=== PATIENT | male | born 1965 | race Caucasian/White ===

== ENCOUNTER 2018-03-01 17:34 | Emergency (ER) | payer OTHER ==
[~2018-03-01] VITALS: Ht 170.2 cm; Wt 70.8 kg
[~2018-03-01 17:34] MED LIST: AMLODIPINE BESYL5 MG PO; CLEOCIN300 MG PO; DOCUSATE SODIU100 MG PO; NICOTINE PATCH1 EAC2 TD; PERCOCET 5/31 TABLET PO
[2018-03-01 17:45] VITALS: BP 141/110
[2018-03-01 18:37] LABS: HEMATOCRIT 35.2 % (38.0-50.0); HEMOGLOBIN 12.2 G/DL (12.5-16.6); MCH 33.1 PG (29.0-34.0); MCHC 34.7 G/DL (30.0-36.0); MCV 95.4 FL (86-99); PLATELET COUNT 194 K/uL (156-360); RBC DIS.WIDTH-CV 13.2 % (11.8-14.6); RBC DIS.WIDTH-SD 46.2 % (39-53); RED BLOOD COUNT 3.69 M/uL (4.00-5.50); WHITE BLOOD COUNT 5.1 K/uL (4.1-10.2)
[2018-03-01 18:47] LABS: CHLORIDE 104 mEq/L (99-109); POTASSIUM 3.7 mEq/L (3.7-5.4); SODIUM 137 mEq/L (136-147)
[2018-03-01 18:49] LABS: GLUCOSE 125 mg/dL (70-99)
[2018-03-01 18:53] LABS: CREATININE 0.6 mg/dL (0.6-1.3); GFR ESTIMATE (CALCULATED) > 59 mL/min/ (58.99-99999)
[2018-03-01 18:54] LABS: UREA NITROGEN (BUN) 6 mg/dL (9-23)
== END 2018-03-01 19:57 | disposition left against medical advice (07) ==
LOC: EME 17:34
PROVIDERS: Emergency Medicine
DX: R56.9 Unspecified convulsions (principal); Z53.21 Procedure and treatment not carried out due to patient leaving prior to being seen by health care provider; F17.200 Nicotine dependence, unspecified, uncomplicated; Z91.14 Patient's other noncompliance with medication regimen
CPT/HCPCS: 80048; 85027; 93005; 99281; 99284